=== PATIENT | female | born 1985 | race Caucasian/White ===

== ENCOUNTER 2021-03-30 00:43 | Emergency (ER) | payer SELFPAY ==
[~2021-03-30] VITALS: Ht 170.2 cm; Wt 87.6 kg
[2021-03-30 00:50] VITALS: BP 121/81
--- NOTE | 2021-03-30 01:03 | PHYS DOC ---
Adult General HPI HPI Patient is a 35-year-old female who presents with left ear pain that started earlier in the day, 6 out of 10, dull and achy in nature. States that her children have had runny noses over the last couple of days. Denies headache, sore throat, chest pain, shortness of breath, abdominal pain, nausea, vomiting, diarrhea. States she did get ear infections frequently up into her teenage years but has not had one for a while. States she took some Tylenol at home with some relief. Review of Systems Review of Systems Review of systems otherwise unremarkable except noted in HPI Physical Exam Physical Exam Constitutional: Well developed, well nourished, no acute distress, non-toxic appearance. [] HENT: Normocephalic, atraumatic, bilateral external ears normal, oropharynx moist, left otitis media, no oral exudates, nose normal. [] Eyes: conjunctiva normal, no discharge. [] Neck: Normal range of motion, no tenderness, supple, no stridor. [] Cardiovascular:Heart rate regular rhythm, no murmur [] Lungs & Thorax: No respiratory distress Neurologic: Alert and oriented X 3, normal motor function, normal sensory function, no focal deficits noted. [] Psychologic: Affect normal, judgement normal, mood normal. [] EKG EKG [] Radiology/Procedures Radiology/Procedures [] Heart Score C/O Chest Pain: No Risk Factors: Risk Factors: DM, Current or recent (<one month) smoker, HTN, HLP, family history of CAD, obesity. Risk Scores: Risk Factors: DM, Current or recent (<one month) smoker, HTN, HLP, family history of CAD, obesity. Course & Med Decision Making Course & Med Decision Making Patient is a 35-year-old female who presents with left ear pain Vital signs not concerning. Physical exam noted above. Declined Tylenol and ibuprofen as she stated she has some at home. Started on antibiotics for left otitis media. Discussed symptom treatment at home. Advised on antibiotics. Advised to follow-up in the morning with primary care. Gave return precautions to the ED. Patient grateful, verbalized understanding and agreed with plan of discharge. [] Dragon Disclaimer Dragon Disclaimer This electronic medical record was generated, in whole or in part, using a voice recognition dictation system. Departure Departure: Impression: Primary Impression: Left otitis media Disposition: HOME / SELF CARE / HOMELESS Condition: GOOD Referrals: NATHANIEL SMITH MD (PCP) Patient Instructions: Otitis Media, Adult Additional Instructions: Thank you for coming into the emergency department tonight and allowing us to take care of you. Please read the attached information carefully to go over things we discussed. Please take your antibiotics as prescribed and until gone. You can also take Tylenol, ibuprofen and Benadryl as we discussed. Please call your primary care physician in the morning to update on your ED visit and set up a follow-up appointment. Please come back to the emergency department immediately with new or concerning symptoms as we discussed. Scripts Amoxicillin (AMOXICILLIN) 500 Mg Capsule 2 CAP PO BID for otitis for 10 Days, #38 CAP Prov: ANA AHUJA MD 03/30/21 ANA AHUJA MD Mar 30, 2021 01:03
[2021-03-30] MEDS ORDERED: AMOX500C PO (01:26)
[2021-03-30] MEDS ORDERED: AMOXICILLIN 250 MG CAPSULE PO ONE (01:30)
[2021-03-30] MEDS ORDERED: AMOXICILLIN 250 MG CAPSULE ONE (01:40)
== END 2021-03-30 01:45 | disposition home or self-care (01) ==
LOC: ER 00:43
DX: H66.92 Otitis media, unspecified, left ear (principal)
CPT/HCPCS: 99283